=== PATIENT | female | born 1955 | race Caucasian/White ===

== ENCOUNTER 2017-09-17 22:07 | Emergency (ER) | payer OTHER ==
[2017-09-17] MEDS: ONDANSETRON (ODT) 4 MG TAB ODT (23:31)
[2017-09-17] MEDS: HYDROCODONE/APAP (10/325) TAB PO (23:32)
== END 2017-09-18 01:45 | disposition home or self-care (01) ==
LOC: FTE 09-18 01:45
DX: S82.832A Other fracture of upper and lower end of left fibula, initial encounter for closed fracture (principal); X58.XXXA Exposure to other specified factors, initial encounter; Y92.9 Unspecified place or not applicable
CPT/HCPCS: 29515; 73610; 99283-25

== ENCOUNTER 2017-10-08 12:26 | Day surgery (SDC) | payer OTHER ==
[2017-10-08] MEDS ORDERED: ONDANSETRON 4 MG INJ (14:18)
[2017-10-08] MEDS ORDERED: MIDAZOLAM 1 MG/ML 2 ML INJ (14:18)
[2017-10-08] MEDS ORDERED: PROPOFOL 20 ML (14:18)
[2017-10-08] MEDS ORDERED: NEOSTIGMINE 3 MG/3 ML SYRINGE (14:18)
[2017-10-08] MEDS ORDERED: ROCURONIUM 50 MG INJ (14:18)
[2017-10-08] MEDS ORDERED: DEXAMETHASONE 4 MG/ML 1 ML INJ (14:18)
[2017-10-08] MEDS ORDERED: FENTAnyl 50 MCG/ML VIAL (14:18)
[2017-10-08] MEDS ORDERED: GLYCOPYRROLATE 0.4 MG INJ (14:18)
[2017-10-08] MEDS ORDERED: CEFAZOLIN 1 GM INJ (14:18)
[2017-10-08] MEDS ORDERED: ROPIVACAINE 0.5 % 30 ML VIAL (14:21)
[2017-10-08] MEDS ORDERED: BACITRACIN/POLYMYXIN 28.35 GM OINT TOP (15:03)
[2017-10-08] MEDS ORDERED: POLYMYXIN/BACITRACIN 1L IRRIG (15:03)
[2017-10-08] MEDS ORDERED: HYDROmorphONE 1 MG/5 ML IV SYRINGE IV ×3 (16:00)
[2017-10-08] MEDS ORDERED: OXYCODONE/ACETAMINOPHEN (5/325) TAB PO (16:00)
[2017-10-08] MEDS ORDERED: LABETALOL HCL 20MG INJ IV (16:00)
[2017-10-08] MEDS ORDERED: EPHEDrine SULFATE 50 MG/5 ML SYG IV (16:00)
[2017-10-08] MEDS ORDERED: IPRATROPIUM (NEB) 0.5 MG/2.5 ML AMP HHN (16:00)
[2017-10-08] MEDS ORDERED: ALBUTEROL 0.083% (NEB) 2.5 MG/3 ML AMP HHN (16:00)
[2017-10-08] MEDS ORDERED: TRIMETHOBENZAMIDE 100 MG/ML VIAL IM (16:00)
[2017-10-08] MEDS ORDERED: MIDAZOLAM 1 MG/ML 2 ML INJ IV (16:00)
[2017-10-08] MEDS ORDERED: DIPHENHYDRAMINE 50 MG INJ IV (16:00)
[2017-10-08] MEDS ORDERED: hydrALAzine 20 MG INJ IV (16:00)
[2017-10-08] MEDS ORDERED: FENTAnyl 50 MCG/ML VIAL IV ×3 (16:00)
[2017-10-08] MEDS ORDERED: morphine 2 MG INJ IV (16:00)
[2017-10-08] MEDS ORDERED: SUGAMMADEX SODIUM 200 MG/2 ML VIAL IV (17:56)
[2017-10-08] MEDS: OXYCODONE/ACETAMINOPHEN (5/325) TAB PO (18:21)
[2017-10-08] MEDS: MEPERIDINE 25 MG INJ IV (18:21)
[2017-10-08] MEDS: ONDANSETRON 4 MG INJ IV (18:21)
== END 2017-10-08 19:40 | disposition home or self-care (01) ==
LOC: SDS 12:26
DX: S82.62XD Displaced fracture of lateral malleolus of left fibula, subsequent encounter for closed fracture with routine healing (principal); X58.XXXD Exposure to other specified factors, subsequent encounter; E03.9 Hypothyroidism, unspecified
CPT/HCPCS: 27792; 73610; 82306

== ENCOUNTER 2018-06-26 10:39 | Observation (INO) | payer OTHER ==
[2018-06-26 11:12] LABS: ADD MAN DIFF? NO
[2018-06-26 11:14] LABS: BASOPHIL # 0.1 10^3/ul (0.0-0.1); BASOPHILS % 0.7 % (0.0-2.0); EOSINOPHILS # 0.1 10^3/ul (0.0-0.5); EOSINOPHILS % 1.2 % (0.0-7.0); HEMATOCRIT 46.9 % (37.0-47.0); HEMOGLOBIN 14.9 g/dl (12.0-16.0); LYMPHOCYTES # 2.4 10^3/ul (0.8-2.9); LYMPHOCYTES % 32.7 % (15.0-51.0); MEAN CORPUSCULAR HGB CONC 31.8 g/dl (32.0-37.0); MEAN CORPUSCULAR VOLUME 91.2 fl (82.0-101.0); MEAN PLATELET VOLUME 10.1 fl (7.4-10.4); MONOCYTE # 0.4 10^3/ul (0.3-0.9); MONOCYTES % 5.9 % (0.0-11.0); NEUTROPHIL # 4.3 10^3/ul (1.6-7.5); NEUTROPHILS % 59.1 % (39.0-77.0); PLATELET COUNT 263 10^3/UL (140-415); RED BLOOD COUNT 5.14 10^6/ul (4.20-5.40); RED CELL DISTRIBUTION WIDTH 14.2 % (11.5-14.5)
[2018-06-26 11:14] LABS: WHITE BLOOD COUNT 7.3 10^3/ul (4.8-10.8)
[2018-06-26 11:18] LABS: ADD UMIC NO; UR ASCORBIC ACID NEGATIVE (NEGATIVE); UR BILIRUBIN (Dip) NEGATIVE (NEGATIVE); UR BLOOD (Dip) NEGATIVE (NEGATIVE); UR CLARITY CLEAR (CLEAR); UR COLOR YELLOW (YELLOW); UR GLUCOSE (Dip) NEGATIVE (NEGATIVE); UR KETONES (Dip) NEGATIVE (NEGATIVE); UR LEUKOCYTE ESTERASE (Dip) NEGATIVE Leu/ul (NEGATIVE); UR NITRITE (Dip) NEGATIVE (NEGATIVE); UR SPECIFIC GRAVITY (Dip) 1.004 (1.003-1.030); UR TOTAL PROTEIN (Dip) NEGATIVE (NEGATIVE); UR UROBILINOGEN (Dip) NEGATIVE (NEGATIVE)
[2018-06-26 11:32] LABS: ANION GAP 12 (5-13); BLOOD UREA NITROGEN 28 mg/dl (7-20); CALCIUM 9.8 mg/dl (8.4-10.2); CARBON DIOXIDE 26 mmol/L (21-31); CHLORIDE 104 mmol/L (97-110); CHOL/HDL RATIO 3.6 RATIO; CHOLESTEROL 219 mg/dl (100-200); CREATININE 1.34 mg/dl (0.44-1.00); Estimated GFR 40 mL/min (>60); GLUCOSE 124 mg/dl (70-220); HDL CHOLESTEROL 60 mg/dl (35-98); LDL CHOLESTEROL,CALCULATED 139 mg/dl; POTASSIUM 4.5 mmol/L (3.5-5.1); SODIUM 142 mmol/L (135-144); TRIGLYCERIDES 102 mg/dl (0-149)
[2018-06-26] MEDS: MECLIZINE 12.5 MG TAB PO (11:32)
[2018-06-26] MEDS: SOD CHLORIDE 0.9% 500 ML IV (11:32)
[2018-06-26 11:36] LABS: AMPHETAMINE/METHAMPHETAMINE Negative (NEGATIVE); BARBITURATES Negative (NEGATIVE); BENZODIAZEPINES Negative (NEGATIVE); CANNABINOIDS Negative (NEGATIVE); COCAINE Negative (NEGATIVE); OPIATES Negative (NEGATIVE)
[2018-06-26 11:41] LABS: TROPONIN-I < 0.012 ng/ml (0.000-0.120)
[2018-06-26 11:53] LABS: INR 0.93; PARTIAL THROMBOPLASTIN TIME 28.3 Sec (23.0-35.0); PROTIME 12.6 Sec (11.9-14.9)
[2018-06-26] MEDS: ASPIRIN 81 MG TAB PO (12:29)
[2018-06-26] MEDS: ONDANSETRON 4 MG INJ IV (12:29)
[2018-06-26] MEDS ORDERED: ONDANSETRON 4 MG INJ IV (13:00)
[2018-06-26] MEDS ORDERED: ACETAMINOPHEN 325 MG TAB PO (13:00)
[2018-06-26] MEDS ORDERED: NACL 0.9% 3 ML SYG IV (14:30)
[2018-06-26] MEDS ORDERED: HYDROCODONE/APAP (5/325) TAB PO (14:30)
[2018-06-26 15:11] LABS: TROPONIN-I < 0.012 ng/ml (0.000-0.120)
[2018-06-26 16:23] LABS: VALPROATE < 10 ug/ml (50-100)
[2018-06-26] MEDS: ATORVASTATIN 40 MG TAB PO (21:11)
[2018-06-27] MEDS: PANTOPRAZOLE (EC) 40 MG TAB PO (06:24)
[2018-06-27] MEDS: LEVOTHYROXINE 150 MCG TAB PO (06:24)
[2018-06-27 06:39] LABS: ADD MAN DIFF? NO
[2018-06-27 06:44] LABS: BASOPHIL # 0.1 10^3/ul (0.0-0.1); EOSINOPHILS # 0.1 10^3/ul (0.0-0.5); EOSINOPHILS % 1.6 % (0.0-7.0); HEMATOCRIT 44.4 % (37.0-47.0); LYMPHOCYTES # 2.7 10^3/ul (0.8-2.9); LYMPHOCYTES % 38.3 % (15.0-51.0); MEAN CORPUSCULAR HEMOGLOBIN 28.7 pg (29.0-33.0); MEAN CORPUSCULAR HGB CONC 31.5 g/dl (32.0-37.0); MEAN PLATELET VOLUME 10.6 fl (7.4-10.4); MONOCYTE # 0.4 10^3/ul (0.3-0.9); MONOCYTES % 5.7 % (0.0-11.0); NEUTROPHIL # 3.7 10^3/ul (1.6-7.5); NEUTROPHILS % 53.3 % (39.0-77.0); PLATELET COUNT 239 10^3/UL (140-415); RED BLOOD COUNT 4.88 10^6/ul (4.20-5.40); RED CELL DISTRIBUTION WIDTH 14.5 % (11.5-14.5)
[2018-06-27 07:08] LABS: ANION GAP 11 (5-13); BLOOD UREA NITROGEN 22 mg/dl (7-20); CALCIUM 9.4 mg/dl (8.4-10.2); CARBON DIOXIDE 26 mmol/L (21-31); CHLORIDE 105 mmol/L (97-110); CREATININE 1.15 mg/dl (0.44-1.00); Estimated GFR 48 mL/min (>60); GLUCOSE 83 mg/dl (70-220); POTASSIUM 4.5 mmol/L (3.5-5.1); SODIUM 142 mmol/L (135-144)
[2018-06-27 07:09] LABS: TROPONIN-I < 0.012 ng/ml (0.000-0.120)
[2018-06-27 07:57] LABS: HEMOGLOBIN A1C 5.1 % (0-5.9)
[2018-06-27] MEDS ORDERED: NON-FORMULARY/PATIENT OWN MED (Omeprazole* 20 MG) PO (09:00)
[2018-06-27] MEDS: ASPIRIN (EC) 81 MG TAB PO (09:04)
== END 2018-06-27 13:55 | disposition home or self-care (01) ==
LOC: E/R 10:39 → PP2 12:59
PROVIDERS: Internal Medicine
DX: R55 Syncope and collapse (principal); I48.91 Unspecified atrial fibrillation; E03.9 Hypothyroidism, unspecified
CPT/HCPCS: 36415; 70450; 71045; 80048; 80061; 80164; 80307; 81003; 82962; 83036; 84484; 85025; 85610; 85730; 93005; 95819; 96374; 99217; 99285-25; G0378